=== PATIENT | female | born 1985 | race Caucasian/White ===

== ENCOUNTER 2024-06-08 08:20 | Outpatient (CLI) | payer OTHER, SELFPAY ==
--- OUTSIDE RECORDS SUMMARY | 2024-06-08 08:38 | XMS_ITS | Encounter Summary ---
Author Organization [facility] Address [address] [place] [address] Care Team Providers Care Field Laboratory Operator Name Role Phone Karlos Mar MD Primary Care Provid er Encounter Details Date Type Department Care Team (Late st Contact Info) Description 08/27/2000 Outpatient [facility] Pediatrics - [facility] [address] [id number] [facility] [address] [place] [address] Pillo Duarte MD [address] [place] [address] Social History Tobacco Use Types Packs/Day Years Used Date Smoking Tobacco: Never Assessed Comments Unknown Sex and Gender Information Value Date Recorded Sex Assigned at Female 12/25/2022 1:41 PM CDT Legal Sex Female 3:43 AM HOSTEL MANAGER Gender Identity Female 12/25/2022 1:41 PM CDT Sexual Orientation Straight 12/25/2022 1: 41 PM CDT documented as of this encounter Plan of Treatment Not on file documented as of this encounter Visit Diagnoses Not on filedocumented in this encounter Additional Health Concerns Infection Onset Date Last Indicated Resolved Time COVID-19 04/08/2022 04/08/2022 04/28/2022 1:16 AM HOSTEL MANAGER documented as of this encounter Care Teams Field Laboratory Operator Relationship Specialty Start Date End Date Karlos Mar MD [address] [place] [phone] PCP - General Internal Medicine 03/13/20 documented as of this encounter
--- OUTSIDE RECORDS SUMMARY | 2024-06-08 08:38 | XMS_ITS | Encounter Summary ---
Author Organization [facility] Address [address] [place] [address] Care Team Providers Care Editorial Cartoonist Name Role Phone Karlos Mar MD Primary Care Provid er Encounter Details Date Type Department Care Team (Late st Contact Info) Description 05/19/2002 Outpatient [facility] - [facility] [address] [id number] [facility] [address] [place] [address] Pillo Duarte MD [address] [place] [address] Social History Tobacco Use Types Packs/Day Years Used Date Smoking Tobacco: Never Assessed Comments Unknown Sex and Gender Information Value Date Recorded Sex Assigned at Female 12/25/2022 1:41 PM CDT Legal Sex Female 3:43 AM ETL DATA ARCHITECT Gender Identity Female 12/25/2022 1:41 PM CDT Sexual Orientation Straight 12/25/2022 1: 41 PM CDT documented as of this encounter Plan of Treatment Not on file documented as of this encounter Visit Diagnoses Not on filedocumented in this encounter Additional Health Concerns Infection Onset Date Last Indicated Resolved Time COVID-19 04/08/2022 04/08/2022 04/28/2022 1:16 AM ETL DATA ARCHITECT documented as of this encounter Care Teams Editorial Cartoonist Relationship Specialty Start Date End Date Karlos Mar MD [address] [place] [phone] PCP - General Internal Medicine 03/13/20 documented as of this encounter
--- OUTSIDE RECORDS SUMMARY | 2024-06-08 08:38 | XMS_ITS | Encounter Summary ---
Author Organization [facility] Address [address] [place] [address] Care Team Providers Care Managed Care Manager Name Role Phone Karlos Mar MD Primary Care Provid er Encounter Details Date Type Department Care Team (Late st Contact Info) Description 02/07/1998 Outpatient Historical [facility] Pediatrics - [facility] [id number] [place] [address] [place] [address] [place] [address] Social History Tobacco Use Types Packs/Day Years Used Date Smoking Tobacco: Never Assessed Comments Unknown Sex and Gender Information Value Date Recorded Sex Assigned at Female 12/25/2022 1:41 PM CDT Legal Sex Female 3:43 AM SAS ADMINISTRATOR Gender Identity Female 12/25/2022 1:41 PM CDT Sexual Orientation Straight 12/25/2022 1: 41 PM CDT documented as of this encounter Plan of Treatment Not on file documented as of this encounter Visit Diagnoses Not on filedocumented in this encounter Additional Health Concerns Infection Onset Date Last Indicated Resolved Time COVID-19 04/08/2022 04/08/2022 04/28/2022 1:16 AM SAS ADMINISTRATOR documented as of this encounter Care Teams Managed Care Manager Relationship Specialty Start Date End Date Karlos Mar MD [address] [phone] PCP - General Internal Medicine 03/13/20 documented as of this encounter
--- OUTSIDE RECORDS SUMMARY | 2024-06-08 08:38 | XMS_ITS | Encounter Summary ---
Author Organization [facility] Address [address] [place] [address] Care Team Providers Care Hadoop Analyst Name Role Phone Karlos Mar MD Primary Care Provid er Encounter Details Date Type Department Care Team (Late st Contact Info) Description 04/01/2001 Outpatient [facility] Pediatrics - [facility] [phone] [facility] [address] [place] [address] Pillo Duarte MD [address] [place] [address] Social History Tobacco Use Types Packs/Day Years Used Date Smoking Tobacco: Never Assessed Comments Unknown Sex and Gender Information Value Date Recorded Sex Assigned at Female 12/25/2022 1:41 PM CDT Legal Sex Female 3:43 AM AN/SSN 2 4 OPERATOR Gender Identity Female 12/25/2022 1:41 PM CDT Sexual Orientation Straight 12/25/2022 1: 41 PM CDT documented as of this encounter Plan of Treatment Not on file documented as of this encounter Visit Diagnoses Not on filedocumented in this encounter Additional Health Concerns Infection Onset Date Last Indicated Resolved Time COVID-19 04/08/2022 04/08/2022 04/28/2022 1:16 AM AN/SSN 2 4 OPERATOR documented as of this encounter Care Teams Hadoop Analyst Relationship Specialty Start Date End Date Karlos Mar MD [address] [place] [phone] PCP - General Internal Medicine 03/13/20 documented as of this encounter
--- OUTSIDE RECORDS SUMMARY | 2024-06-08 08:38 | XMS_ITS | Encounter Summary ---
Author Organization [facility] Address 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) Social History Tobacco Use Types Packs/Day Years Used Date Smoking Tobacco: Never Assessed Comments Unknown Sex and Gender Information Value Date Recorded Sex Assigned at Female 12/25/2022 1:41 PM CDT Legal Sex Female 3:43 AM PREANALYTICS TEAM LEAD Gender Identity Female 12/25/2022 1:41 PM CDT Sexual Orientation Straight 12/25/2022 1: 41 PM CDT documented as of this encounter Plan of Treatment Not on file documented as of this encounter Visit Diagnoses Diagnosis 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
--- OUTSIDE RECORDS SUMMARY | 2024-06-08 08:38 | XMS_ITS | Clinical Summary ---
Author Organization [facility] Options Address [facility] [place] [address] Care Team Providers Care Certified Medical Transcriptionist Name Role Phone Karlos Mar MD Primary Care Provid er Allergies No known active allergies Medications CHOLECALCIFEROL , VITAMIN D3, ORAL Take 2,000 Units by mouth. Active cetirizine (ZyrTEC) 10 mg tablet Take 10 mg by mouth daily. Active albuterol sulfate HFA 90 mcg/actuation aerosol inhaler Take 2 Puffs by inhalation every 6 hours as needed for Shortness of Breath or Other (See Comment) (Cough). 18 Gram 1 4 Active vit-iron sauykpnk-mk-vgn (PNV-DHA) 27 mg iron-1 mg -300 mg Capsule per capsule Take 1 Capsule by mouth daily. Active famotidine (PEPCID) 20 mg tablet Take 20 mg by mouth 2 times daily. Active esomeprazole magnesium 20 mg Tablet, Delayed Release (E.C.) Take 1 Tablet by mouth daily. 30 Tablet 2 4 Active budesonide-form oteroL (SYMBICORT) 80-4.5 mcg/actuation HFA Aerosol Inhaler Take 2 Puffs by inhalation 2 times daily. 1 Gram 2 4 Active ibuprofen (MOTRIN) 600 mg tablet Take 1 Tablet (600 mg) by mouth every 6 hours. 60 Tablet 10/05/2023 1:09 PM CDT 4 Active acetaminophen (TYLENOL) 500 mg tablet Take 1 Tablet (500 mg) by mouth every 6 hours. 60 Tablet 10/05/2023 1:09 PM CDT 4 Active docusate sodium (COLACE) 100 mg capsule Take 1 Capsule (100 mg) by mouth 2 times daily. 30 Capsule 10/05/2023 1:09 PM CDT 4 Active oxyCODONE (ROXICODONE) 5 mg tabletIndicatio ns:Vaginal delivery,Chorio amnionitis in third trimester, single or unspecified fetus,Pre-eclam psia, severe, delivered Take 1 Tablet (5 mg) by mouth every 4 hours as needed for Pain. Max Daily Amount: 30 mg 25 Tablet 10/05/2023 1:09 PM CDT 4 Active norgestimate-et hinyl estradioL (Sprintec, 28,) 0.25 mg-35 mcg tablet Take 1 Tablet by mouth daily. To be taken continuously, skip placebo pills and start next pack. 112 Tablet 2 5 Active norethindrone-e .estradioL-iron (Lo Loestrin Fe) 1 mg-10 mcg (24)/10 mcg (2) Tablet per tablet Take 1 Tablet by mouth daily. 84 Tablet 2 4 025 Discontinu ed(Alterna te therapy prescribed ) Active Problems Problem Noted Date Diagnosed Date Acute blood loss anemia 10/10/2023 S/P D&C (status post dilation and curettage) Pre-eclampsia, severe, delivered 10/05/2023 Chorioamnionitis in third trimester 10/05/2023 Vaginal delivery of twin A a nd Cesearan delivery of twin B- 10/01 - girl/ boy 10/02/2023 Persistent cough 06/10/2023 Antepartum complication of 06/08/2023 resulting from in-vitro fertilization 04/01/2023 Obesity in , antepartum 04/01/2023 Multigravida of advanced maternal age in first t rimester 04/01/2023 Irregular bleeding 04/26/2020 Anovular menstruation 04/26/2020 IBS (irritable bowel syndrome) 12/31/2011 Overview (12/31/2011): Constipation predominant Allergic rhinitis 08/01/2011 Mild persistent asthma 08/01/2011 Depressive disorder 05/08/2011 Asthma 05/31/2010 Resolved Problems Problem Noted Date Diagnosed Date Resolved Date Gestational hypertension, third trimester 09/30/2023 10/05/2023 resulting from in vitro fertilization in first trimester 04/06/2023 024 Encounter for supervision of high risk in third trimester, antepartum 04/01/2023 10/02/2023 Dichorionic diamniotic twin in third trimester 04/01/2023 10/05/2023 Encounters Date Type Department Care Team Description 05/31/2024 External Device Data STL ABSTRACTION Provider, Abstract 05/31/2024 External Device Data STL ABSTRACTION Provider, Abstract 05/24/2024 External Device Data STL ABSTRACTION Provider, Abstract 05/17/2024 1:00 PM LUNCHROOM OPERATOR Office Visit [facility] [employer] GR[employer] - [facility] [place] [address] [facility] [address] [place] [address] Pal Cohn MD Well woman exam with routine gynecological exam (Primary Dx) 05/17/2024 12:00 PM LUNCHROOM OPERATOR - 05/17/2024 11:59 PM LUNCHROOM OPERATOR Hospital Encounter [facility] [place] [address] [facility] [facility] [address] [place] [address] Pal Cohn MD Discharge Disposition: Home or Self Care 05/17/2024 External Device Data STL ABSTRACTION Provider, Abstract 05/17/2024 Results Follow-Up [facility] [employer] - [facility] [address] [facility] [address] [place] [address] Pal Cohn MD MAMMO 3D TAURUS SCREEN BILAT W OR WO CAD 05/16/2024 Telephone [facility] Clinical Support [address] [place] [phone] Leon Rodriguez RN Question 05/11/2024 External Device Data STL ABSTRACTION Provider, Abstract 05/10/2024 External Device Data STL ABSTRACTION Provider, Abstract 04/26/2024 External Device Data STL ABSTRACTION Provider, Abstract 04/19/2024 External Device Data STL ABSTRACTION Provider, Abstract 04/13/2024 External Device Data STL ABSTRACTION Provider, Abstract 04/13/2024 External Device Data STL ABSTRACTION Provider, Abstract 04/07/2024 Transcribe Orders Central Test Scheduling [address] [place] [phone] Pal Cohn MD Visit for screening mammogram (Primary Dx) from Last 3 Months Immunizations Immunization Administration Dates Next Due (ADACEL/BOOSTRIX)(10 YR UP) TDAP VACCINE, 0.5ML, IM 08/07/2023 (SPIKEVAX) (12 YRS UP PRIMAR Y SERIES) COVID-19 VACCINE - MRNA-1273(PF) 100 MCG/0.5 ML IM SUSP 07/19/2020 INFLUENZA VACCINE QUADRIVALENT 6 MOS UP PF IM Influenza Seasonal Unspecified Formulation IM Family History Medical History Relation Name Comments Diabetes Father Tyron Maxwell Heart Disease Father Tyron Maxwell High Cholesterol Father Tyron Maxwell Hypertension Father Tyron Maxwell Thyroid Disease Father Tyron Maxwell Diabetes Maternal Grandfather Edward Luebbers Heart Disease Maternal Grandfather Edward Luebbers High Cholesterol Maternal Grandfather Edward Luebbers Hypertension Maternal Grandfather Edward Luebbers Liver Disease Maternal Grandfather Edward Luebbers Melanoma Maternal Grandfather Edward Luebbers Thyroid Disease Maternal Grandfather Edward Luebbers Cancer Maternal Grandmother Tova Luebbers Colon Cancer Maternal Grandmother Tova Luebbers Diabetes Maternal Grandmother Tova Luebbers High Cholesterol Maternal Grandmother Tova Luebbers Hypertension Maternal Grandmother Tova Luebbers Diabetes Mother Pat Kiszczak High Cholesterol Mother Pat Kiszczak Hypertension Mother Pat Kiszczak Heart Disease Paternal Grandfather Kiszczak Hypertension Paternal Grandfather Kiszczak Kidney Disease Paternal Grandfather Kiszczak Respiratory Disease Paternal Grandfather Kiszczak Diabetes Paternal Grandmother Kiszczak Heart Disease Paternal Grandmother Kiszczak High Cholesterol Paternal Grandmother Kiszczak Hypertension Paternal Grandmother Kiszczak Stroke Paternal Grandmother Kiszczak Asthma Sister Rosemary Cracchiola Hypertension Sister Rosemary Cracchiola Celiac Disease Neg Hx Crohn's Disease Neg Hx Pancreatic Cancer Neg Hx Relation Name Status Comments Brother Alive Father Tyron Maxwell Maternal Grandfather Brady Giordano Maternal Grandmother Tova Giordano Mother Belén Maxwell (Age 68) Paternal Grandfather Alissa Paternal Grandmother Alissa Sister Rosemary Irving Alive Social History Tobacco Use Types Packs/Day Years Used Date Smoking Tobacco: Never Passive Smoke Exposure: Never Smokeless Tobacco: Never Tobacco Cessation:Counseling Given: Not Answered Alcohol Use Standard Drinks/Week Comments Not Currently 0 (1 standard drink = 0.6 oz pur e alcohol) rarely Feeling Safe Answer Date Recorded Are you in a relationship wi th someone who hurts you emotionally and/or physically? Patient unable to answer 10/08/2023 Comments No Sex and Gender Information Value Date Recorded Sex Assigned at Female 12/25/2022 1:41 PM CDT Legal Sex Female 3:43 AM LUNCHROOM OPERATOR Gender Identity Female 12/25/2022 1:41 PM CDT Sexual Orientation Straight 12/25/2022 1: 41 PM CDT Occupation Industry Job Start Date Job End Date Not on file Not on file Not on file Not on file Last Filed Vital Signs Vital Sign Reading Time Taken Comments Blood Pressure 130/86 05/17/2024 12:59 PM LUNCHROOM OPERATOR Pulse 89 05/17/2024 12:59 PM LUNCHROOM OPERATOR Temperature 36.8 C (98.3 F) 10/10/2023 3:37 PM CDT Respiratory Rate 24 10/10/2023 3:37 PM CDT Oxygen Saturation 98% 05/17/2024 12:59 PM LUNCHROOM OPERATOR Inhaled Oxygen Concentration - - Weight 99.2 kg (218 lb 9.6 oz) 05/17/2024 12:59 PM LUNCHROOM OPERATOR Height 154.9 cm (5' 1 ) 05/17/2024 12:59 PM LUNCHROOM OPERATOR Body Mass Index 41.3 05/17/2024 12:59 PM LUNCHROOM OPERATOR Plan of Treatment Health Maintenance Due Date Last Done Comments HEPATITIS B VACCINES (1 of 3 - 19+ 3-dose series) 02/01/2003 COVID-19 Vaccine ( season) 2023 04/12/2021, 07/19/2020, 06/21/2020 BREAST CANCER SCREENING 05/17/2025 05/17/2024 CERVICAL CANCER SCREENING 06/11/20252022, 09/13/2020, 04/14/2011, Additional history exists Pre-Diabetes and Diabetes Screening 07/23/2026 07/24/2023, 03/13/2020 DTAP/TDAP/TD VACCINES (2 - Td or Tdap) 08/06/2033 08/07/2023 INFLUENZA VACCINE Completed 02/06/2024, , 12/30/2021, Additional history exists Preventative Visit- Commercial Completed 05/17/2024, 06/11/2022, 09/13/2020, Additional history exists HPV VACCINES Aged Out No longer eligi ble based on patient's age to complete this topic Procedures Procedure Name Priority Date/Time Associated Diagnosis Comments MAMMO 3D TAURUS SCREEN BILAT W OR WO CAD Routine 05/17/2024 12:15 PM LUNCHROOM OPERATOR Visit for screening mammogram HEMOGLOBIN A1C Routine 07/24/2023 9:07 AM CDT Obesity in , antepartum CERV/VAG CYTO AGE BASED SCREEN PAP W CT/NG, TRICH Routine 06/11/2022 3:05 PM CDT Encounter for gynecological examination without abnormal finding from Last 3 Months or Most Recently Relevant to Health Maintenance Results * MAMMO 3D TAURUS SCREEN BILAT W OR WO CAD (05/17/2024 12:15 PM LUNCHROOM OPERATOR) Anatomical Region Laterality Modality Breast Bilateral Mammography 05/17/2024 12:1 5 PM LUNCHROOM OPERATOR Impressions 05/17/2024 2:49 PM LUNCHROOM OPERATOR IMPRESSION: Negative bilateral screening mammogram. Recommend routine followup. OVERALL FINAL ASSESSMENT: BI-RADS CATEGORY 1: Negative DICTATION LOCATION: [facility] 05/17/2024 2:49 PM LUNCHROOM OPERATOR BILATERAL SCREENING DIGITAL MAMMOGRAM WITH 3D TOMOSYNTHESIS AND CAD DATE: 05/17/2024 12:15 PM HISTORY: Baseline screening study. COMPARISON: none, baseline screening TECHNIQUE: A bilateral screening mammogram was performed. Low-dose full-field digital breast tomosynthesis examination was performed with 2D and 3D acquisitions. Examination is read in conjunction with computer aided detection. BREAST COMPOSITION: Almost entirely fat FINDINGS: No new masses, suspicious calcifications, or areas of asymmetry or distortion are identified. The images were reviewed using the CAD system. us Pal Cohn MD MAMMO ORDERABLES Final Result * HEMOGLOBIN A1C (07/24/2023 9:07 AM CDT) HEMOGLOBIN A1C 5.5 <5.7 % of total Hgb [facility] Comment: For the purpose of screening for the presence of diabetes: <5.7% Consistent with the absence of diabetes 5.7-6.4% Consistent with increased risk for diabetes (prediabetes) > or =6.5% Consistent with diabetes This assay result is consistent with a decreased risk of diabetes. Currently, no consensus exists regarding use of hemoglobin A1c for diagnosis of diabetes in children. According to [place] Diabetes Association (ADA) guidelines, hemoglobin A1c <7.0% represents optimal control in non- diabetic patients. Different metrics may apply to specific patient populations. Standards of Medical Care in Diabetes(ADA). ESTIMATED AVERAGE GLUCOSE (MG/DL) 111 mg/dL [facility] ESTIMATED AVERAGE GLUCOSE (MMOL/L) 6.2 mmol/L [facility] mckeon Dontrell Comment: This test was performed on the Jah donna c503 platform. Effective 06/08/23, a change in test platforms from the Walker Clearing Hand to the Jah donna c503 may have shifted HbA1c results compared to historical results. Based on laboratory validation testing conducted at [facility], the Jah platform relative to the Walker platform had an average increase in HbA1c value of < or = 0.3%. This difference is within accepted variability established by the National Glycohemoglobin Standardization Program. Note that not all individuals will have had a shift in their results and direct comparisons between historical and current results for testing conducted on different platforms is not recommended. Test Performed at: [facility] [address] [place] [phone] Radha Hdez Vo Blood 07/24/2023 9:07 AM CDT 07/24/2023 9:07 AM CDT us Pal Cohn MD CHEMISTRY ORDERABLES Final Res ult [facility] [phone] [place] [address] [place] [phone] * CERV/VAG CYTO AGE BASED SCREEN PAP W CT/NG, TRICH (06/11/2022 3:05 PM CDT) COMMENT (PAP): [facility] [place] Comment: This order for age-based cervical cancer and STI screening follows ACOG guidelines(PB 168, 140, MKY004). See individual assays for performing site location. CLINICAL INFORMATION [facility] [place] Comment:SCREENING LAST MENSTRUAL PERIOD [facility] [place] Comment:NONE GIVEN PREV PAP: [facility] [place] Comment:NONE GIVEN PREV BX: [facility] [place] Comment:NONE GIVEN SOURCE [facility] [place] Comment:Endocervix ADEQUACY: [facility] [place] Comment: Satisfactory for evaluation. Endocervical/transformation zone component present. Age and/or menstrual status not provided PAP INTERP [facility] [place] Comment:Negative for intraep ithelial lesion or malignancy. COMMENT (PAP TEST) [facility] [place] Comment: This Pap test has been evaluated with computer assisted technology. OFFSET PLATEMAKER: [facility] [place] Comment: MEF, CT(ASCP) CT screening location: [place] [address] [address] [address] EXPLANATORY NOTE [facility] Comment: EXPLANATORY NOTE: The Pap is a screening test for cervical cancer. It is not a diagnostic test and is subject to false negative and false positive results. It is most reliable when a satisfactory sample, regularly obtained, is submitted with relevant clinical findings and history, and when the Pap result is evaluated along with historic and current clinical information. HPV E6/E7 Not Detected Not Detected [facility] [place] Comment: Methodology: Bell Captain-Mediated Amplification This assay detects E6/E7 viral messenger RNA (mRNA) from 14 high-risk HPV types (16,18,31,33,35,39,45,51,52,56,58,59,66,68). Cervical sources are required for HPV testing. If a vaginal source from a patient who has had a total hysterectomy with removal of cervix was submitted, please contact the testing laboratory for alternative testing options. For additional information, please refer to http://education.Tripbod/faq/LFY103r5 (This link if provided for information/ educational purposes only.) C TRAC RNA NOT DETECTED NOT DETECTED [facility] [place] N.GONORRHOEAE RNA, TMA NOT DETECTED NOT DETECTED [facility] [place] COMMENT INFECTIOUS DISEASE [facility] [place] Comment: The analytical performance characteristics of this assay, when used to test SurePath(TM) specimens have been determined by [facility]. The modifications have not been cleared or approved by the FDA. This assay has been validated pursuant to the CLIA regulations and is used for clinical purposes. For additional information, please refer to https://[employer].Tripbod/faq/KGN275 (This link is being provided for information/ educational purposes only.) TRICHOMONAS VAGINALIS,QUALITAT RASHMI,PAP VIAL NOT DETECTED NOT DETECTED [facility] [place] Comment: The analytical performance characteristics of this assay have been determined by [facility]. The modifications have not been cleared or approved by the FDA. This assay has been validated pursuant to the CLIA regulations and is used for clinical purposes. For additional information, please refer to http://[employer].Tripbod/ faq/Trichomonastma (This link is being provided for information/ educational purposes only.) Test Performed at: [facility] [address] [place] [address] Radha MATHIAS Genital SWAB OF ENDOCERVIX / Unknown 06/11/2022 3:05 PM CDT 06/12/2022 3:30 AM CDT Hellen Gayle NP PATHOLOGY/CYTOLOGY ORDERAB LES Final Result [facility] [phone] [facility] [place] [address] [place] [phone] from Last 3 Months or Most Recently Relevant to Health Maintenance Insurance [facility] [place] RX EXPRESS S[employer] Express RX EXPRESS [employer] Express [place] [employer] CHOICE Advance Directives For more information, please contact: [phone] * Full Code (Latest Code Status on File) Date Activated Date Inactivated Comments 10/09/2023 6:26 AM 10/10/2023 10:00 PM * Full Code Date Activated Date Inactivated Comments 10/08/2023 11:16 PM 10/09/2023 6:25 AM * Full Code Date Activated Date Inactivated Comments 10/03/2023 12:53 AM 10/05/2023 4:52 PM * Full Code Date Activated Date Inactivated Comments 10/02/2023 5:42 AM 10/03/2023 12:21 AM * Full Code Date Activated Date Inactivated Comments 09/30/2023 8:42 PM 10/02/2023 5:42 AM Care Teams Certified Medical Transcriptionist Relationship Specialty Start Date End Date Karlos Mar MD [address] [place] [phone] PCP - General Internal Medicine 03/13/20
--- OUTSIDE RECORDS SUMMARY | 2024-06-08 08:38 | XMS_ITS | Encounter Summary ---
Author Organization [facility] Address [address] [place] [address] Care Team Providers Care Meat And Poultry Inspector Name Role Phone Karlos Mar MD Primary Care Provid er Encounter Details Date Type Department Care Team (Late st Contact Info) Description 06/15/2000 Outpatient [facility] Pediatrics - [facility] [address] [address] [facility] [address] [place] [address] Pillo Duarte MD [address] [place] [address] Social History Tobacco Use Types Packs/Day Years Used Date Smoking Tobacco: Never Assessed Comments Unknown Sex and Gender Information Value Date Recorded Sex Assigned at Female 12/25/2022 1:41 PM CDT Legal Sex Female 3:43 AM MEDICAL CODER Gender Identity Female 12/25/2022 1:41 PM CDT Sexual Orientation Straight 12/25/2022 1: 41 PM CDT documented as of this encounter Plan of Treatment Not on file documented as of this encounter Visit Diagnoses Not on filedocumented in this encounter Additional Health Concerns Infection Onset Date Last Indicated Resolved Time COVID-19 04/08/2022 04/08/2022 04/28/2022 1:16 AM MEDICAL CODER documented as of this encounter Care Teams Meat And Poultry Inspector Relationship Specialty Start Date End Date Karlos Mar MD [address] [place] [phone] PCP - General Internal Medicine 03/13/20 documented as of this encounter
--- OUTSIDE RECORDS SUMMARY | 2024-06-08 08:38 | XMS_ITS | Encounter Summary ---
Author Organization [facility] Address [address] [place] [address] Care Team Providers Care Paraplanner Name Role Phone Karlos Mar MD Primary Care Provid er Encounter Details Date Type Department Care Team (Late st Contact Info) Description 04/29/2001 Outpatient [facility] Pediatrics - [facility] [address] [address] [facility] [address] [place] [address] Pillo Duarte MD [address] [place] [address] Social History Tobacco Use Types Packs/Day Years Used Date Smoking Tobacco: Never Assessed Comments Unknown Sex and Gender Information Value Date Recorded Sex Assigned at Female 12/25/2022 1:41 PM CDT Legal Sex Female 3:43 AM LANGUAGE INSTRUCTOR Gender Identity Female 12/25/2022 1:41 PM CDT Sexual Orientation Straight 12/25/2022 1: 41 PM CDT documented as of this encounter Plan of Treatment Not on file documented as of this encounter Visit Diagnoses Not on filedocumented in this encounter Additional Health Concerns Infection Onset Date Last Indicated Resolved Time COVID-19 04/08/2022 04/08/2022 04/28/2022 1:16 AM LANGUAGE INSTRUCTOR documented as of this encounter Care Teams Paraplanner Relationship Specialty Start Date End Date Karlos Mar MD [address] [place] [phone] PCP - General Internal Medicine 03/13/20 documented as of this encounter
--- OUTSIDE RECORDS SUMMARY | 2024-06-08 08:38 | XMS_ITS | Encounter Summary ---
Author Organization [facility] Address [address] [place] [address] Care Team Providers Care Dictaphone Typist Name Role Phone Karlos Mar MD Primary Care Provid er Encounter Details Date Type Department Care Team (Late st Contact Info) Description 02/23/2001 Outpatient [facility] Pediatrics - [facility] [address] [address] [facility] [address] [place] [address] Pillo Duarte MD [address] [place] [address] Social History Tobacco Use Types Packs/Day Years Used Date Smoking Tobacco: Never Assessed Comments Unknown Sex and Gender Information Value Date Recorded Sex Assigned at Female 12/25/2022 1:41 PM CDT Legal Sex Female 3:43 AM CHILD SUPPORT AGENT Gender Identity Female 12/25/2022 1:41 PM CDT Sexual Orientation Straight 12/25/2022 1: 41 PM CDT documented as of this encounter Plan of Treatment Not on file documented as of this encounter Visit Diagnoses Not on filedocumented in this encounter Additional Health Concerns Infection Onset Date Last Indicated Resolved Time COVID-19 04/08/2022 04/08/2022 04/28/2022 1:16 AM CHILD SUPPORT AGENT documented as of this encounter Care Teams Dictaphone Typist Relationship Specialty Start Date End Date Karlos Mar MD [address] [place] [phone] PCP - General Internal Medicine 03/13/20 documented as of this encounter
--- OUTSIDE RECORDS SUMMARY | 2024-06-08 08:38 | XMS_ITS | Encounter Summary ---
Author Organization [facility] Address [address] [place] [address] Care Team Providers Care Director Of Corporate Strategy Name Role Phone Karlos Mar MD Primary Care Provid er Encounter Details Date Type Department Care Team (Late st Contact Info) Description 06/25/1998 Outpatient Historical [facility] Pediatrics - [place] [address] [address] [facility] [address] [place] [address] Pillo Duarte MD [address] [place] [address] Social History Tobacco Use Types Packs/Day Years Used Date Smoking Tobacco: Never Assessed Comments Unknown Sex and Gender Information Value Date Recorded Sex Assigned at Female 12/25/2022 1:41 PM CDT Legal Sex Female 3:43 AM SWEATER DESIGNER Gender Identity Female 12/25/2022 1:41 PM CDT Sexual Orientation Straight 12/25/2022 1: 41 PM CDT documented as of this encounter Plan of Treatment Not on file documented as of this encounter Visit Diagnoses Not on filedocumented in this encounter Additional Health Concerns Infection Onset Date Last Indicated Resolved Time COVID-19 04/08/2022 04/08/2022 04/28/2022 1:16 AM SWEATER DESIGNER documented as of this encounter Care Teams Director Of Corporate Strategy Relationship Specialty Start Date End Date Karlos Mar MD [address] [place] [phone] PCP - General Internal Medicine 03/13/20 documented as of this encounter
--- OUTSIDE RECORDS SUMMARY | 2024-06-08 08:38 | XMS_ITS | Encounter Summary ---
Author Organization [facility] Address [address] [place] [address] Care Team Providers Care Post Anesthesia Room Nurse Name Role Phone Karlos Mar MD Primary Care Provid er Encounter Details Date Type Department Care Team (Late st Contact Info) Description 05/13/1999 Outpatient [facility] - [facility] [phone] [facility] [address] [place] [address] Pillo Duarte MD [address] [place] [address] Social History Tobacco Use Types Packs/Day Years Used Date Smoking Tobacco: Never Assessed Comments Unknown Sex and Gender Information Value Date Recorded Sex Assigned at Female 12/25/2022 1:41 PM CDT Legal Sex Female 3:43 AM OCCUPATIONAL ANALYST Gender Identity Female 12/25/2022 1:41 PM CDT Sexual Orientation Straight 12/25/2022 1: 41 PM CDT documented as of this encounter Plan of Treatment Not on file documented as of this encounter Visit Diagnoses Not on filedocumented in this encounter Additional Health Concerns Infection Onset Date Last Indicated Resolved Time COVID-19 04/08/2022 04/08/2022 04/28/2022 1:16 AM OCCUPATIONAL ANALYST documented as of this encounter Care Teams Post Anesthesia Room Nurse Relationship Specialty Start Date End Date Karlos Mar MD [address] [place] [phone] PCP - General Internal Medicine 03/13/20 documented as of this encounter
--- OUTSIDE RECORDS SUMMARY | 2024-06-08 08:38 | XMS_ITS | Encounter Summary ---
Author Organization [facility] Address [address] [place] [address] Care Team Providers Care Heat Engineering Teacher Name Role Phone Karlos Mar MD Primary Care Provid er Encounter Details Date Type Department Care Team (Late st Contact Info) Description 08/01/2002 Outpatient [facility] - [facility] [phone] [facility] [address] [place] [address] Pillo Duarte MD [address] [place] [address] Social History Tobacco Use Types Packs/Day Years Used Date Smoking Tobacco: Never Assessed Comments Unknown Sex and Gender Information Value Date Recorded Sex Assigned at Female 12/25/2022 1:41 PM CDT Legal Sex Female 3:43 AM STUDENT DEVELOPMENT ADVISOR Gender Identity Female 12/25/2022 1:41 PM CDT Sexual Orientation Straight 12/25/2022 1: 41 PM CDT documented as of this encounter Plan of Treatment Not on file documented as of this encounter Visit Diagnoses Not on filedocumented in this encounter Additional Health Concerns Infection Onset Date Last Indicated Resolved Time COVID-19 04/08/2022 04/08/2022 04/28/2022 1:16 AM STUDENT DEVELOPMENT ADVISOR documented as of this encounter Care Teams Heat Engineering Teacher Relationship Specialty Start Date End Date Karlos Mar MD [address] [place] [phone] PCP - General Internal Medicine 03/13/20 documented as of this encounter
--- OUTSIDE RECORDS SUMMARY | 2024-06-08 08:38 | XMS_ITS | Encounter Summary ---
Author Organization [facility] Address [address] [place] [address] Care Team Providers Care Store Sales Manager Name Role Phone Karlos Mar MD Primary Care Provid er Encounter Details Date Type Department Care Team (Late st Contact Info) Description 02/24/2001 Outpatient [facility] - [facility] [address] [address] [facility] [address] [place] [address] Pillo Duarte MD [address] [place] [address] Social History Tobacco Use Types Packs/Day Years Used Date Smoking Tobacco: Never Assessed Comments Unknown Sex and Gender Information Value Date Recorded Sex Assigned at Female 12/25/2022 1:41 PM CDT Legal Sex Female 3:43 AM OIL WELL LOGGING ENGINEER Gender Identity Female 12/25/2022 1:41 PM CDT Sexual Orientation Straight 12/25/2022 1: 41 PM CDT documented as of this encounter Plan of Treatment Not on file documented as of this encounter Visit Diagnoses Not on filedocumented in this encounter Additional Health Concerns Infection Onset Date Last Indicated Resolved Time COVID-19 04/08/2022 04/08/2022 04/28/2022 1:16 AM OIL WELL LOGGING ENGINEER documented as of this encounter Care Teams Store Sales Manager Relationship Specialty Start Date End Date Karlos Mar MD [address] [place] [phone] PCP - General Internal Medicine 03/13/20 documented as of this encounter
--- OUTSIDE RECORDS SUMMARY | 2024-06-08 08:38 | XMS_ITS | Encounter Summary ---
Author Organization [facility] Address [address] [place] [address] Care Team Providers Care Palm And Back Forger Name Role Phone Karlos Mar MD Primary Care Provid er Encounter Details Date Type Department Care Team (Late st Contact Info) Description 09/03/1999 Outpatient [facility] - [facility] [address] [address] [facility] [address] [place] [address] Pillo Duarte MD [address] [place] [address] Social History Tobacco Use Types Packs/Day Years Used Date Smoking Tobacco: Never Assessed Comments Unknown Sex and Gender Information Value Date Recorded Sex Assigned at Female 12/25/2022 1:41 PM CDT Legal Sex Female 3:43 AM BUSINESS ANALYST Gender Identity Female 12/25/2022 1:41 PM CDT Sexual Orientation Straight 12/25/2022 1: 41 PM CDT documented as of this encounter Plan of Treatment Not on file documented as of this encounter Visit Diagnoses Not on filedocumented in this encounter Additional Health Concerns Infection Onset Date Last Indicated Resolved Time COVID-19 04/08/2022 04/08/2022 04/28/2022 1:16 AM BUSINESS ANALYST documented as of this encounter Care Teams Palm And Back Forger Relationship Specialty Start Date End Date Karlos Mar MD [address] [place] [phone] PCP - General Internal Medicine 03/13/20 documented as of this encounter
--- OUTSIDE RECORDS SUMMARY | 2024-06-08 08:38 | XMS_ITS | Encounter Summary ---
Author Organization [facility] Address [address] [place] [address] Care Team Providers Care Schedule Supervisor Name Role Phone Karlos Mar MD Primary Care Provid er Encounter Details Date Type Department Care Team (Late st Contact Info) Description 08/12/2000 Outpatient [facility] - [facility] [address] [address] [facility] [address] [place] [address] Pillo Duarte MD [address] [place] [address] Social History Tobacco Use Types Packs/Day Years Used Date Smoking Tobacco: Never Assessed Comments Unknown Sex and Gender Information Value Date Recorded Sex Assigned at Female 12/25/2022 1:41 PM CDT Legal Sex Female 3:43 AM ICE CREAM FREEZER HELPER Gender Identity Female 12/25/2022 1:41 PM CDT Sexual Orientation Straight 12/25/2022 1: 41 PM CDT documented as of this encounter Plan of Treatment Not on file documented as of this encounter Visit Diagnoses Not on filedocumented in this encounter Additional Health Concerns Infection Onset Date Last Indicated Resolved Time COVID-19 04/08/2022 04/08/2022 04/28/2022 1:16 AM ICE CREAM FREEZER HELPER documented as of this encounter Care Teams Schedule Supervisor Relationship Specialty Start Date End Date Karlos Mar MD [address] [place] [phone] PCP - General Internal Medicine 03/13/20 documented as of this encounter
--- OUTSIDE RECORDS SUMMARY | 2024-06-08 08:38 | XMS_ITS | Encounter Summary ---
Author Organization [facility] Address [address] [place] [address] Care Team Providers Care Contract Negotiation Manager Name Role Phone Karlos Mar MD Primary Care Provid er Encounter Details Date Type Department Care Team (Late st Contact Info) Description 09/06/1999 Outpatient [facility] - [facility] [address] [address] [facility] [address] [place] [address] Pillo Duarte MD [address] [place] [address] Social History Tobacco Use Types Packs/Day Years Used Date Smoking Tobacco: Never Assessed Comments Unknown Sex and Gender Information Value Date Recorded Sex Assigned at Female 12/25/2022 1:41 PM CDT Legal Sex Female 3:43 AM UNDERGROUND SUPERVISOR Gender Identity Female 12/25/2022 1:41 PM CDT Sexual Orientation Straight 12/25/2022 1: 41 PM CDT documented as of this encounter Plan of Treatment Not on file documented as of this encounter Visit Diagnoses Not on filedocumented in this encounter Additional Health Concerns Infection Onset Date Last Indicated Resolved Time COVID-19 04/08/2022 04/08/2022 04/28/2022 1:16 AM UNDERGROUND SUPERVISOR documented as of this encounter Care Teams Contract Negotiation Manager Relationship Specialty Start Date End Date Karlos Mar MD [address] [place] [phone] PCP - General Internal Medicine 03/13/20 documented as of this encounter
--- OUTSIDE RECORDS SUMMARY | 2024-06-08 08:38 | XMS_ITS | Encounter Summary ---
Author Organization [facility] Address [address] [place] [address] Care Team Providers Care Steam And Gas Turbines Assembler Name Role Phone Karlos Mar MD Primary Care Provid er Encounter Details Date Type Department Care Team (Late st Contact Info) Description 01/31/1998 Outpatient [facility]s - [facility] [address] [id number] [facility] [address] [place] [address] Pillo Duarte MD [address] [place] [address] Social History Tobacco Use Types Packs/Day Years Used Date Smoking Tobacco: Never Assessed Comments Unknown Sex and Gender Information Value Date Recorded Sex Assigned at Female 12/25/2022 1:41 PM CDT Legal Sex Female 3:43 AM CLOTH SECONDS SORTER Gender Identity Female 12/25/2022 1:41 PM CDT Sexual Orientation Straight 12/25/2022 1: 41 PM CDT documented as of this encounter Plan of Treatment Not on file documented as of this encounter Visit Diagnoses Not on filedocumented in this encounter Additional Health Concerns Infection Onset Date Last Indicated Resolved Time COVID-19 04/08/2022 04/08/2022 04/28/2022 1:16 AM CLOTH SECONDS SORTER documented as of this encounter Care Teams Steam And Gas Turbines Assembler Relationship Specialty Start Date End Date Karlos Mar MD [address] [place] [phone] PCP - General Internal Medicine 03/13/20 documented as of this encounter
--- OUTSIDE RECORDS SUMMARY | 2024-06-08 08:38 | XMS_ITS | Encounter Summary ---
Author Organization [facility] Address [address] [place] [address] Care Team Providers Care Display Card Writer Name Role Phone Karlos Mar MD Primary Care Provid er Encounter Details Date Type Department Care Team (Late st Contact Info) Description 05/17/2024 Results Follow-Up [facility] APRON OPERATOR - Medical [facility] [address] [place] [address] Pal Cohn MD [address] [place] [phone] MAMMO 3D TAURUS SCREEN BILAT W OR WO CAD Social History Tobacco Use Types Packs/Day Years Used Date Smoking Tobacco: Never Passive Smoke Exposure: Never Smokeless Tobacco: Never Alcohol Use Standard Drinks/Week Comments Not Currently [...] PM CDT Legal Sex Female 3:43 AM PROCESSING REP Gender Identity Female 12/25/2022 1:41 PM CDT Sexual Orientation Straight 12/25/2022 1: 41 PM CDT Occupation Industry Job Start Date Job End Date Not on file Not on file Not on file Not on file documented as of this encounter Plan of Treatment Not on file documented as of this encounter Visit Diagnoses Not on filedocumented in this encounter Care Teams Display Card Writer Relationship Specialty Start Date End Date Karlos Mar MD [address] [place] [phone] PCP - General Internal Medicine 03/13/20 documented as of this encounter
--- OUTSIDE RECORDS SUMMARY | 2024-06-08 08:38 | XMS_ITS | Encounter Summary ---
Author Organization [facility] Address [address] [place] [address] Care Team Providers Care Shift Mgr Name Role Phone Karlos Mar MD Primary Care Provid er Encounter Details Date Type Department Care Team (Late st Contact Info) Description 05/31/2001 Outpatient [facility] Pediatrics [facility] [address] [address] [facility] [address] [place] [address] Pillo Duarte MD [address] [place] [address] Social History Tobacco Use Types Packs/Day Years Used Date Smoking Tobacco: Never Assessed Comments Unknown Sex and Gender Information Value Date Recorded Sex Assigned at Female 12/25/2022 1:41 PM CDT Legal Sex Female 3:43 AM ELECTRIC MOTOR ASSEMBLER AND TESTER Gender Identity Female 12/25/2022 1:41 PM CDT Sexual Orientation Straight 12/25/2022 1: 41 PM CDT documented as of this encounter Plan of Treatment Not on file documented as of this encounter Visit Diagnoses Not on filedocumented in this encounter Additional Health Concerns Infection Onset Date Last Indicated Resolved Time COVID-19 04/08/2022 04/08/2022 04/28/2022 1:16 AM ELECTRIC MOTOR ASSEMBLER AND TESTER documented as of this encounter Care Teams Shift Mgr Relationship Specialty Start Date End Date Karlos Mar MD [address] [place] [phone] PCP - General Internal Medicine 03/13/20 documented as of this encounter
== END 2024-06-09 10:54 | disposition home or self-care (01) ==
PROVIDERS: PCP Nurse Practitioner Family; Visit Provider Nurse Practitioner Family
DX: G47.30 Sleep apnea, unspecified (principal)
CPT/HCPCS: 95800